=== PATIENT | female | born 1995 | race Caucasian/White ===

== ENCOUNTER 2016-10-15 04:43 | Emergency (ER) | payer SELFPAY ==
[~2016-10-15] VITALS: Ht 170.2 cm; Wt 72.6 kg
[2016-10-15 05:36] LABS: BILIRUBIN,URINE NEGATIVE (NEG); GLUCOSE,URINE NEGATIVE (NEG); NITRITE,URINE NEGATIVE (NEG); PH,URINE 6.5; PROTEIN,URINE NEGATIVE (NEG-TRACE); UROBILINOGEN,URINE 0.2 mg/dL (0.2 mg/dL)
[2016-10-15 05:59] LABS: BACTERIA,URINE 0 /HPF (0-FEW); RBC,URINE 0 /HPF (0-2); SQUAMOUS EPITHELIAL CELL,UR MANY /LPF; TRICHOMONAS,URINE PRESENT
[2016-10-15] MEDS ORDERED: ONDANSETRON PF 4 MG/2 ML VIAL. IV ONE (06:00)
[2016-10-15 06:24] LABS: BASO % 0 % (0-3); EOS % 1 % (0-3); HEMOGLOBIN 13.8 g/dL (12.0-15.5); LYMPH # 1.5 x10^3/uL (1.0-4.8); LYMPH % 12 % (24-48); MEAN CORPUSCULAR HEMOGLOBIN 32 pg (25-35); MEAN CORPUSCULAR HGB CONC 33 g/dL (31-37); MEAN CORPUSCULAR VOLUME 98 fL (79-100); MONO % 6 % (0-9); NEUT % 81 % (31-73); PLATELET COUNT 193 x10^3/uL (140-400); RED CELL DISTRIBUTION WIDTH 13.6 % (11.5-14.5); WHITE BLOOD COUNT 12.6 x10^3/uL (4.0-11.0)
[2016-10-15] MEDS ORDERED: PROMETHAZINE 12.5 MG in IV NORMAL SALINE 50ML 50 ML IV PRN (06:30)
[2016-10-15] MEDS ORDERED: PANTOPRAZOLE IV PUSH 40 MG VIAL. IVP ONE (06:30)
[2016-10-15] MEDS ORDERED: IV NORMAL SALINE 1000ML BAG 1,000 ML IV ONE (06:30)
[2016-10-15] MEDS: LIDO:MAALOX:DONNATAL 1:1:1 15 ML SINGLE DOSE SWSW ONE ×2 (06:30→06:39)
[2016-10-15] MEDS ORDERED: MORPHINE SULFATE 10 MG/ML VIAL. IV ONE (06:30)
[2016-10-15 06:31] LABS: CALCIUM 8.9 mg/dL (8.5-10.1); CREATININE 0.9 mg/dL (0.6-1.0); GFR 77.6; POTASSIUM 3.9 mmol/L (3.5-5.1)
[2016-10-15 06:37] LABS: ALBUMIN/GLOBULIN RATIO 1.1 (1.0-1.7); TOTAL BILIRUBIN 0.8 mg/dL (0.2-1.0); TOTAL PROTEIN 7.7 g/dL (6.4-8.2)
--- NOTE | 2016-10-15 06:40 | PHYS DOC ---
Past Medical History Past Medical History: No Pertinent History Past Surgical History: No Surgical History Alcohol Use: Rarely Drug Use: None Adult General Chief Complaint Chief Complaint: ABDOMINAL PAIN HPI HPI Patient is a 21 year old female presenting to the emergency department for evaluation of epigastric abdominal pain that started at 7:00 last night and worsened around 2:00 in the morning and now she is having nonbloody nonbilious emesis. She says that the pain is sharp and burning and radiates into her lower quadrants. She denies any dysuria hematuria vaginal bleeding vaginal discharge diarrhea or constipation. She does have Trichomonas in her urine and I asked her if she has any concerns about gonorrhea or chlamydia. Patient appears uncomfortable but is in no obvious distress with normal vital signs. Review of Systems Review of Systems Constitutional: Denies fever or chills [] Eyes: Denies change in visual acuity, redness, or eye pain [] HENT: Denies nasal congestion or sore throat [] Respiratory: Denies cough or shortness of breath [] Cardiovascular: No additional information not addressed in HPI [] GI: + abdominal pain, nausea, vomiting. No bloody stools or diarrhea [] : Denies dysuria or hematuria [] Musculoskeletal: Denies back pain or joint pain [] Integument: Denies rash or skin lesions [] Neurologic: Denies headache, focal weakness or sensory changes [] Current Medications Current Medications Current Medications Medications (Trade) Dose Ordered Sig/Emiliana Start Time Stop Time Status Last Admin Dose Admin Info (Do NOT chart on this entry -- for MONITORING) 1 each PRN DAILY PRN 10/15/16 07:30 10/17/16 07:29 Iohexol (Omnipaque 300 Mg/ml) 75 ml 1X ONCE 10/15/16 07:30 10/15/16 07:31 DC 10/15/16 07:49 75 ML Morphine Sulfate 5 mg 1X ONCE 10/15/16 06:30 10/15/16 06:31 DC 10/15/16 06:30 5 MG Multi-Ingredient Mouthwash/Gargle (Gi Cocktail Single Dose) 15 ml 1X ONCE 10/15/16 06:30 10/15/16 06:31 DC 10/15/16 06:39 15 ML Ondansetron HCl (Zofran) 4 mg 1X ONCE 10/15/16 06:00 10/15/16 06:01 DC 10/15/16 05:54 4 MG Pantoprazole Sodium (Protonix Vial) 40 mg 1X ONCE 10/15/16 06:30 10/15/16 06:31 DC 10/15/16 06:30 40 MG Promethazine HCl 12.5 mg/Sodium Chloride 50.5 ml @ 151.5 mls/ hr PRN Q6HRS PRN 10/15/16 06:30 10/15/16 06:36 151.5 MLS/HR Sodium Chloride 1,000 ml @ 1,000 mls/hr 1X ONCE 10/15/16 06:30 10/15/16 07:29 DC 10/15/16 06:31 1,000 MLS/HR Allergies Allergies Allergies Coded Allergies Type Severity Reaction Last Updated Verified No Known Drug Allergies 10/15/16 No Physical Exam Physical Exam Constitutional: Well developed, well nourished, no acute distress, non-toxic appearance. [] HENT: Normocephalic, atraumatic, bilateral external ears normal, oropharynx moist, no oral exudates, nose normal. [] Eyes: PERRLA, EOMI, conjunctiva normal, no discharge. [] Neck: Normal range of motion, no tenderness, supple, no stridor. [] Cardiovascular:Heart rate regular rhythm, no murmur [] Lungs & Thorax: Bilateral breath sounds clear to auscultation [] Abdomen: Bowel sounds normal, soft, + diffuse tenderness worse in epigastrium, no rebound or guarding, no masses, no pulsatile masses. [] Skin: Warm, dry, no erythema, no rash. [] Back: No tenderness, no CVA tenderness. [] Extremities: No tenderness, no cyanosis, no clubbing, ROM intact, no edema. [] Neurologic: Alert and oriented X 3, normal motor function, normal sensory function, no focal deficits noted. [] Current Patient Data Vital Signs Vital Signs Date Time Temp Pulse Resp B/P (MAP) Pulse Ox O2 Delivery O2 Flow Rate FiO2 10/15/16 05:10 97.8 74 18 109/68 (82) 97 Room Air 97.8 Lab Values Laboratory Tests Test 10/15/16 03:05 10/15/16 05:10 Urine Collection Type Void Urine Color Yellow Urine Clarity Cloudy Urine pH 6.5 Urine Specific [place] 1.025 Urine Protein Negative mg/dL (NEG-TRACE) Urine Glucose (UA) Negative mg/dL (NEG) Urine Ketones (Stick) Negative mg/dL (NEG) Urine Blood Negative (NEG) Urine Nitrite Negative (NEG) Urine Bilirubin Negative (NEG) Urine Urobilinogen Dipstick 0.2 mg/dL (0.2 mg/dL) Urine Leukocyte Esterase Trace (NEG) Urine RBC 0 /HPF (0-2) Urine WBC 1-4 /HPF (0-4) Urine Squamous Epithelial Cells Many /LPF Urine Bacteria 0 /HPF (0-FEW) Urine Mucus Marked /LPF Urine Trichomonas Present White Blood Count 12.6 x10^3/uL (4.0-11.0) H Red Blood Count 4.30 x10^6/uL (3.50-5.40) Hemoglobin 13.8 g/dL (12.0-15.5) Hematocrit 42.0 % (36.0-47.0) Mean Corpuscular Volume 98 fL (79-100) Mean Corpuscular Hemoglobin 32 pg (25-35) Mean Corpuscular Hemoglobin Concent 33 g/dL (31-37) Red Cell Distribution Width 13.6 % (11.5-14.5) Platelet Count 193 x10^3/uL (140-400) Neutrophils (%) (Auto) 81 % (31-73) H Lymphocytes (%) (Auto) 12 % (24-48) L Monocytes (%) (Auto) 6 % (0-9) Eosinophils (%) (Auto) 1 % (0-3) Basophils (%) (Auto) 0 % (0-3) Neutrophils # (Auto) 10.2 x10^3uL (1.8-7.7) H Lymphocytes # (Auto) 1.5 x10^3/uL (1.0-4.8) Monocytes # (Auto) 0.7 x10^3/uL (0.0-1.1) Eosinophils # (Auto) 0.2 x10^3/uL (0.0-0.7) Basophils # (Auto) 0.0 x10^3/uL (0.0-0.2) Sodium Level 142 mmol/L (136-145) Potassium Level 3.9 mmol/L (3.5-5.1) Chloride Level 106 mmol/L (98-107) Carbon Dioxide Level 31 mmol/L (21-32) Anion Gap 5 (6-14) L Blood Urea Nitrogen 14 mg/dL (7-20) Creatinine 0.9 mg/dL (0.6-1.0) Estimated GFR (Cockcroft-Gault) 77.6 BUN/Creatinine Ratio 16 (6-20) Glucose Level 90 mg/dL (70-99) Calcium Level 8.9 mg/dL (8.5-10.1) Total Bilirubin 0.8 mg/dL (0.2-1.0) Aspartate Amino Transferase (AST) 16 U/L (15-37) Alanine Aminotransferase (ALT) 20 U/L (14-59) Alkaline Phosphatase 104 U/L (46-116) Total Protein 7.7 g/dL (6.4-8.2) Albumin 4.0 g/dL (3.4-5.0) Albumin/Globulin Ratio 1.1 (1.0-1.7) Lipase 114 U/L (73-393) Laboratory Tests 10/15/16 05:10 Laboratory Tests 10/15/16 05:10 EKG EKG [] Radiology/Procedures Radiology/Procedures Indication: Upper abdominal pain radiating to the right. Axial imaging through the abdomen and pelvis was performed after the administration of intravenous contrast. No prior studies are available for comparison. The lung bases are clear. The liver and gallbladder are unremarkable. The pancreas and spleen are unremarkable. No adrenal mass is detected. The kidneys are unremarkable. The aorta is nonaneurysmal. The small and large loops are normal caliber. No obstruction is seen. There is no ascites. The appendix is not well-visualized on this study but no inflammatory process in the right lower quadrant is identified. The uterus and bladder are unremarkable. Impression: No acute feature is detected. DICTATED and SIGNED BY: MARTHA FERREIRA MD DATE: 10/15/16 08 Course & Med Decision Making Course & Med Decision Making Patient's symptoms will be treated with Phenergan and morphine IV fluids protonic's GI cocktail and had labs checked. Do not suspect surgical etiology to her pain rather she likely has gastritis or non-perforated ulcer. Patient's CT is negative and she is able to tolerate fluids by mouth with no difficulty on repeat exam and her repeat abdominal exam is benign. Given she appears better with repeat normal physical exam and vital signs she'll be discharged in stable condition with instructions to follow with a GI physician and come back to the ER sooner with any new or worsening pain fevers vomiting or other general concerns. Ana Disclaimer Ana Disclaimer This electronic medical record was generated, in whole or in part, using a voice recognition dictation system. Departure Departure Impression: Primary Impression: Abdominal pain Additional Impressions: Nausea & vomiting Leukocytosis Disposition: HOME, SELF-CARE Condition: GOOD Referrals: JAJA RAJPUT MD Patient Instructions: Abdominal Pain (Nonspecific), Trichomoniasis Additional Instructions: TAKE THE PRILOSEC DAILY. DRINK PLENTY OF WATER AND GATORADE. ONCE YOU FEEL LIKE EATING START WITH SOFT NON-IRRITATING FOODS LIKE SOUPS, JELLOS. FOLLOW WITH THE GI DOCTOR AND COME BACK TO THE D WITH ANY NEW OR WORSENING SYMPTOMS. THANK YOU! Scripts Ondansetron (ZOFRAN ODT) 4 Mg Tab.rapdis 4 MG PO BID Y for NAUSEA/VOMITING, #10 TAB Prov: RADHA KHAN DO 10/15/16 Hydrocodone/Apap 5-325 (NORCO 5-325 TABLET) 1 Each Tablet 1 TAB PO PRN Q6HRS Y for PAIN, #14 TAB 0 Refills Prov: RADHA KHAN DO 10/15/16 Metronidazole (FLAGYL) 500 Mg Tablet 4 TAB PO 1X, #4 TAB Prov: RADHA KHAN DO 10/15/16 Omeprazole Magnesium (PRILOSEC OTC) 20 Mg Tablet. 1 TAB PO DAILY, #30 TAB 3 Refills Prov: RADHA KHAN DO 10/15/16 Problem Qualifiers Primary Impression: Abdominal pain Abdominal location: epigastric Qualified Codes: R10.13 - Epigastric pain RADHA KHAN DO Oct 15, 2016 06:40
[2016-10-15 07:30] VITALS: BP 90/56
[2016-10-15] MEDS ORDERED: IOHEXOL 300 MG/ML 75 ML VIAL IV ONE (07:30)
[2016-10-15] MEDS ORDERED: CONTRAST GIVEN MC PRN (07:30)
--- NOTE | 2016-10-15 08:10 | RAD ---
Indication: Upper abdominal pain radiating to the right. Axial imaging through the abdomen and pelvis was performed after the administration of intravenous contrast. No prior studies are available for comparison. The lung bases are clear. The liver and gallbladder are unremarkable. The pancreas and spleen are unremarkable. No adrenal mass is detected. The kidneys are unremarkable. The aorta is nonaneurysmal. The small and large loops are normal caliber. No obstruction is seen. There is no ascites. The appendix is not well-visualized on this study but no inflammatory process in the right lower quadrant is identified. The uterus and bladder are unremarkable. Impression: No acute feature is detected.
[2016-10-15] MEDS ORDERED: METR500T PO (08:26)
[2016-10-15] MEDS ORDERED: ONDA4TAB10 PO (08:26)
[2016-10-15] MEDS ORDERED: HYDR-971 PO (08:26)
[2016-10-15] MEDS ORDERED: OMEP20TA63 PO (08:26)
== END 2016-10-15 08:35 | disposition home or self-care (01) ==
LOC: ER 04:43
DX: R10.13 Epigastric pain (principal); R11.2 Nausea with vomiting, unspecified; D72.829 Elevated white blood cell count, unspecified
CPT/HCPCS: 36415; 74177; 80053; 81001; 81025; 83690; 85027; 87086; 96365; 96375; 99285; C9113; J2270; J2405; J2550; J7030; Q9967